=== PATIENT | male | born 1955 | race Two or more races ===

== ENCOUNTER 2025-01-23 20:12 | Emergency (ER) | payer OTHER ==
[~2025-01-23] VITALS: Ht 170.2 cm; Wt 84.8 kg
[2025-01-23] MEDS ORDERED: KETOROLAC TROMETHAMINE 30 MG VIAL IM STA (22:07)
[2025-01-23] MEDS ORDERED: ORPHENADRINE CITRATE 30 MG/ML AMPUL IM STA (22:07)
[2025-01-23] MEDS ORDERED: KETOROLAC TROMETHAMINE 30 MG VIAL ONE (22:10)
[2025-01-23 22:20] LABS: BASO % 0.1 % (0.1-1.2); EOS # 0.00 (0.04-0.54); EOS % 0.0 % (0.7-7.0); LYMPH # 0.88 (1.18-3.74); LYMPH % 4.3 % (19.3-53.1); MEAN PLATELET VOLUME 9.50 fl (9.4-12.4); MONO # 1.50 (0.24-0.82); MONO % 7.4 % (4.7-12.5); NEUT # 17.79 (1.56-6.13); NEUT % 87.8 % (34.0-71.1); RED CELL DISTRIBUTION WIDTH 12.8 % (11.6-14.4)
[2025-01-23] MEDS ORDERED: CEFTRIAXONE SODIUM 2,000 MG VIAL IV STA (23:09)
[2025-01-23] MEDS ORDERED: CEFTRIAXONE SODIUM 2,000 MG VIAL ONE (23:41)
[2025-01-24 00:26] LABS: COVID-19 AG NEGATIVE (NEGATIVE)
[2025-01-24 00:57] LABS: ABG PH 7.438 (7.35-7.45); ABG PO2 87.1 mmHg (80-100); BICARBONATE 25.0 mmol/l (23-25)
[2025-01-24 01:01] LABS: o2 21 %
[2025-01-24 01:05] LABS: URINE APPEARANCE Cloudy; URINE BILIRRUBIN Small (NEGATIVE); URINE BLOOD Negative; URINE COLOR Dark Yellow; URINE GLUCOSE Negative (NEGATIVE); URINE KETONE 15 (NEGATIVE); URINE LEUKOCYTE Negative; URINE NITRATE Negative; URINE UROBILINOGEN 1.0 E.U./dl
[2025-01-24 01:09] LABS: URINE BACTERIA 139.2 uL (0.0-1933); URINE CAST 14.66 uL (0.0-1.40); URINE EPITHELIAL CELLS 46.6 uL (0.0-38.8); URINE RBC 7.9 uL (0.0-20.8); URINE WBC 18.7 uL (0.0-23.2)
[2025-01-24 01:33] LABS: ALT/SGPT 37.0 U/L (12-78); AST/SGOT 23.0 U/L (15-37); BILIRUBIN TOTAL 0.71 mg/dL (0.3-1.2); BUN CREA RATIO 17.0 (7.0-25.0); CREATININE SERUM 1.01 mg/dL (0.70-1.30); GFR 73.24; GLOBULINA 3.7 G/DL (2.4-3.5); GLUCOSE FASTING 142.0 mg/dL (65-100); OSMOLALITY SERUM 276.0 MOSM/KG (275-295)
[2025-01-24 01:58] LABS: URINE MUCUS MODERATE; URINE PROTEIN 100 (NEGATIVE)
[2025-01-24 02:05] LABS: BASO % 0.2 % (0.1-1.2); EOS # 0.00 (0.04-0.54); EOS % 0.0 % (0.7-7.0); LYMPH # 1.49 (1.18-3.74); LYMPH % 7.9 % (19.3-53.1); MEAN PLATELET VOLUME 9.70 fl (9.4-12.4); MONO # 1.55 (0.24-0.82); MONO % 8.2 % (4.7-12.5); NEUT # 15.74 (1.56-6.13); NEUT % 83.1 % (34.0-71.1); RED CELL DISTRIBUTION WIDTH 12.9 % (11.6-14.4)
[2025-01-24] MEDS ORDERED: OSEL75CA PO (03:01)
== END 2025-01-24 03:14 ==
LOC: EDBD 20:12 → ER 20:12
PROVIDERS: General Practice
DX: J10.1 Influenza due to other identified influenza virus with other respiratory manifestations (principal); R05.9 Cough, unspecified; Z20.822 Contact with and (suspected) exposure to COVID-19
CPT/HCPCS: 36415; 71046; 71250; 82803; 96365; 96372; 99284; J0696; J1885; J2360